=== PATIENT | female | born 1970 | race Caucasian/White ===

== ENCOUNTER 2023-08-27 10:24 | Outpatient (AMB) | payer MEDICAID, SELFPAY ==
--- NOTE | 2023-08-27 10:36 | A.SPINEOV_ITS ---
Intake Intake Visit Reasons: Low back PAIN Intake Note: Mrs. Scott is here today c/o recurrent low back pain. Previous pt. @ [facility]. MRI done @ [facility]/brought disc. 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 HPI: This 63-year-old female underwent a successful L4-5 lumbar fusion 15 years ago in another institution. She comes in for evaluation after she had 2 epis odes of acute pain in the right buttock. Specifically, on 03/16/2023 she developed an acute pain around the waist and right buttock without back pain. The symptoms lasted for 2 days. Another episode occurred on 07/25/2023. This time the pain radiated to her posterior thigh and knee with numbness of the whole thigh and right foot. Again the symptoms resolved in a few days. Currently she is symptom free. She states that after standing for more than hour she notices an uncomfortable feeling in her low back radiating to her right buttock that disappears when she sits down. She was seen at [facility]. She comes in today for 2nd opinion. The following conservative treatment options were tried without success antiinflammatories, tylenol, physician guided home exercise plan, cortisone shots PMH: L4-5 lumbar fusion, hiatal hernia, anxiety, right carpal tunnel syndrome, hypothyroidism Medications: Fioricet, alprazolam, tizanidine, progressed wrong, testosterone, fair repair male, levothyroxine, pravastatin, Nexium, vitamin-D, Zyrtec Allergies: Simvastatin, Vicodin, more Social history: She works in a [employer] center. She is a nonsmoker Physical Exam: Pleasant female. No restriction of the lumbar spine. Neurological exam is intact for motor sensation reflexes. Gait is undisturbed. Radiological Studies: MRI done at [facility] on 04/04/2023 shows adjacent degenerative disc disease with moderate central stenosis and bilateral L3 foraminal stenosis. A standing x-ray shows no significant instability. Impression/Plan: This patient is suffering from intermittent right L4 lumbar radiculopathy related to adjacent degenerative disease L3-4. I did not recommend surgical intervention at this time. However, if progression of the symptoms occur then the patient will contact my office for a re evaluation with flexion-extension x-rays. Thank you for allowing me to participate in your patients care. total time spent was 50 minutes in counseling ,coordination of plan, personal review of imaging, surgical decision making and subsequent plan Jeffery Blue MD, PhD Spine Fellowship Trained Neurosurgeon Director, [facility] Coding Level of Care Code New Pt Level 4 (49775) Diagnoses Adjacent segment disease of lumbar spine with history of fusion procedure M51.36; Z98.1
== END 2023-08-27 11:32 | disposition home or self-care (01) ==
PROVIDERS: Visit Provider Neurological Surgery
DX: M51.36 Other intervertebral disc degeneration, lumbar region (principal); Z98.1 Arthrodesis status
CPT/HCPCS: 99204

== ENCOUNTER → 2023-08-27 10:24 | Outpatient (BNVA) | payer MEDICAID, SELFPAY | PROVIDERS: Visit Provider Neurological Surgery ==

== ENCOUNTER 2024-09-23 12:46 | Outpatient (AMB) | payer BC, SELFPAY ==
--- NOTE | 2024-09-23 12:55 | HO.SPINEOV ---
Intake Visit Reasons: recurring pain/with xrays Intake Note: Ms. Scott is here today c/o of recurring back pain. 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 She had a L4-5 interbody fusion done many years ago at an outside institution. She was seen last year by Dr. Bleu for intermittent on and off back pain issues but nothing that was raising to the level of needing surgery. In late July of this year she was in the shower and had a fall. She fell out of her tub fell backwards onto her back. She initially may have just had a little bit of pain and discomfort but nothing that was too bad, but over the course of a few days her back started to tighten up. She started to feel back pain shooting down into the right side of her low back into her buttock. It felt like her sciatic pain. She has had this in the past related to her previous surgery so she was familiar with the sensation. She saw her PCP who ordered a thoracic MRI and a lumbar MRI. The lumbar MRI was denied for reasons that are not clear. The patient has been doing dedicated conservative management since the fall including Tylenol Arthritis, nonsteroidal anti-inflammatories, lidocaine back cream, stretches that were shown to her previously from her physical therapist, heating pads, hot showers etc.. The symptoms do not seem to be improving at all. She has at a point now where she is having significant trouble getting through daily activities. She is continuing to work, however it is very uncomfortable. On my exam, she does appear uncomfortable, standing very slowly. She has full strength of bilateral lower extremities with normal reflexes. Straight leg raise positive at 30 degrees. RICKIE testing negative. I think the patient when she fell possibly could have injured or herniated a disc. Her x-rays today here in the office show stable positioning of the L4-5 instrumentation. No sign of a fracture. Because of the pain radiating down into the buttock, I would like to get a lumbar MRI to rule out herniated disc. We will also get a set of flexion-extension x-rays to assess for instability above her fusion. Total amount of time spent in this visit was 20 minutes in discussion of symptoms, lumbar xray imaging results and subsequent plan of care Jacob Blue MD,PhD [facility] Orders: Orders XR lumbar spine 4V min Today M51.36 - Other intervertebral disc degeneration, lumbar region, Z98.1 - Arthrodesis status MR lumbar spine wo con Today M51.36 - Other intervertebral disc degeneration, lumbar region, Z98.1 - Arthrodesis status Coding Level of Care Code Est Pt Level 3 (89456) Diagnoses Adjacent segment disease of lumbar spine with history of fusion procedure M51.36; Z98.1
== END 2024-09-23 13:51 | disposition home or self-care (01) ==
PROVIDERS: Visit Provider Physician Assistant
DX: M51.369 Other intervertebral disc degeneration, lumbar region without mention of lumbar back pain or lower extremity pain (principal); Z98.1 Arthrodesis status
CPT/HCPCS: 99213

== ENCOUNTER → 2024-09-23 12:46 | Outpatient (BNVA) | payer BC, SELFPAY | PROVIDERS: Visit Provider Physician Assistant ==

== ENCOUNTER 2025-08-05 11:22 | Outpatient (AMB) | payer BC, SELFPAY ==
[2025-08-05 11:45] VITALS: BMI 37.2
--- NOTE | 2025-08-05 11:45 | A.SPINEOV_ITS ---
Vital Signs 08/05/25 11:45 Height 5 ft 1 in Weight 197 lb BMI 37.2 Intake Visit Reasons: discuss sx Intake Note: Ms. Scott is here today to Discuss Surgery. 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 Allergies acetaminophen (From Vicodin) Allergy (Mild, Verified 08/05/25 11:47) Vomiting hydrocodone (From Vicodin) Allergy (Mild, Verified 08/05/25 11:47) Vomiting simvastatin Allergy (Mild, Verified 08/05/25 11:47) Vomiting morphine Adverse Reaction (Severe, Verified 08/05/25 11:47) Hallucinations Physical Exam Vital Signs: BMI result Body Mass Index 37.2 Assessment & Plan Assessment & Plan (1) Adjacent segment disease of lumbar spine with history of fusion procedure: Code(s): M51.36 - Other intervertebral disc degeneration, lumbar region; Z98.1 - Arthrodesis status Category: Medical Plan Mrs Scott is back in follow up today. She is a patient known to us from previous office visits discussing back pain which has been chronic in nature and progressively getting worse. At this point she is having a hard time even doing simple things like cleaning her house. She has been through extensive conservative management in the form of medications, injections, physical therapy at [facility]. Her MRI done at [facility], and x-rays done at [facility] show worsening of her spondylolisthesis above her fusion. She had a previous transforaminal lumbar interbody fusion done at [facility] at L4-5 and now has L3-4 degenerative disc disease which we believe is causing her back pain. Dr. Blue and I met with her today and reviewed the procedure again at length, specifically L3-4 oblique lumbar interbody fusion with revision of posterior instrumentation. Her previous instrumentation was Surgalign. We have tentatively booked her for November 15. The patient was given risk and benefits of OLIF L3-4 surgery including but not limited to infection, hematoma, nerve injury, durotomy, weakness, bowel/bladder injury, persistent pain, and pseudoarthosis or instrumentation failure. We also discussed the option to continue with conservative treatment and patient wishes to proceed with surgery. They are aware they should stop NSAIDs 7 days prior to surgery. All questions were answered to the best of our ability. If there is anything about this patients medical history that we have overlooked or concerns you have about us proceeding with surgery we would appreciate any input you can offer Total amount of time spent in this visit was 20 minutes in discussion of symptoms, lumbar imaging results and subsequent plan of care Jacob Blue MD,PhD [facility] Coding Level of Care Code Est Pt Level 3 (61698) Diagnoses Adjacent segment disease of lumbar spine with history of fusion procedure M51.36; Z98.1
--- OUTSIDE RECORDS SUMMARY | 2025-08-05 13:12 | XMS_ITS | Encounter Summary ---
Author Organization [facility] Address [address] [place] [address] Care Team Providers Care Heel Lift Gouger Name Role Phone Casie Cunningham IMPLEMENTATION CONSULTANT Primary Care P lexx Encounter Details Date Type Department Care Team (Late st Contact Info) Description 06/10/2025 Orders Only [facility] [address] [place] [phone] Marlys Chavez, PA [address] [place] [address] Anemia, unspecified type (Primary Dx) Social History Tobacco Use Types Packs/Day Years Used Date Smoking Tobacco: Never Smokeless Tobacco: Never Comments:: Alcohol Use Standard Drinks/Week Comments Not Currently 0 (1 standard drink = 0.6 oz pur e alcohol) less than once monthly [facility] Utilities Answer Date Recorded In the past 12 months has e electric, gas, oil, or water company threatened to shut off services in your home? No 06/03/2025 Hunger Vital Sign Answer Date Recorded Within the past 12 months, y ou worried that your food would run out before you got the money to buy more. Never true 06/03/20 Within the past 12 months, t he food you bought just didn't last and you didn't have money to get more. Never true 06/03/2025 Transportation Answer Date Recorded In the past 12 months, has l ack of reliable transportation kept you from medical appointments, meetings, work or from getting things needed for daily living? No 06/03/2025 Housing Answer Date Recorded Housing Risk Low 2 11/19/2024 Housing Risk Medium Not on file 11/19/2024 Housing Risk High Not on file 11/19/2024 What is your living situation today? LSSTEADY 11/19/2024 Comments No Sex and Gender Information Value Date Recorded Sex Assigned at Female 11/14/2020 11:50 AM EST Legal Sex Female 1:19 AM EDT Gender Identity Female 11/14/2020 11:50 AM EST Sexual Orientation Straight 11/14/2020 11 :50 AM EST Occupation Industry Job Start Date Job End Date works in [employer] Not on file Not on file Not on file documented as of this encounter Plan of Treatment Upcoming Encounters Date Type Department Care Team (Late st Contact Info) Description 08/15/2025 8:00 AM EDT Follow-Up [facility] [address] [place] [id number] Aquatic Life Laborer: Bon Black MD [address] [place] [id number] 08/18/2025 9:45 AM EDT Follow-Up [facility] Neurology [address] [place] [phone] Nacho Mcqueen MD [address] [place] [phone] 08/19/2025 4:15 PM EDT Follow-Up [facility] [address] [place] [phone] Casie Cunningham NP [address] [place] [address] 04/17/2026 8:00 AM EDT Office Visit [facility] Endocrinology [address] [address] Aquatic Life Laborer: Katy Cordon MD [address] [place] [address] 05/17/2026 8:00 AM EDT Ancillary Procedure [facility] [address] [place] [phone] 05/17/2026 8:30 AM EDT Office Visit [facility] [address] [place] [phone] Leah Kothari NP [address] [place] [address] documented as of this encounter Results * Due to [place] state law, this organization might not be sharing negative HIV tests. * (ABNORMAL) CBC Auto Differential (06/16/2025 7:12 AM EDT) WBC 6.0 4.8 - 10.8 10*3/uL 06/16/2025 7:46 AM EDT [facility] RBC 4.03(L) 4.20 - 5.40 10*6/uL 06/16/2025 7:46 AM EDT [facility] Hemoglobin 11.5(L) 11.7 - 15.5 g/dL 06/16/2025 7:46 AM EDT [facility] Hematocrit 33.6(L) 35.7 - 45.8 % 06/16/2025 7:46 AM EDT [facility] MCV 83.4 81.0 - 99.0 fL 06/16/2025 7:46 AM EDT [facility] MCH 28.5 26.0 - 34.0 pg 06/16/2025 7:46 AM EDT [facility] MCHC 34.2 31.0 - 36.0 g/dL 06/16/2025 7:46 AM EDT [facility] RDW 14.0 12.0 - 15.0 % 06/16/2025 7:46 AM EDT [facility] RDW Standard Deviation 42.5 36.4 - 46.3 fL 06/16/2025 7:46 AM EDT [facility] Platelets 343 140 - 440 10*3/uL 06/16/2025 7:46 AM EDT [facility] MPV 8.9(L) 9.4 - 12.3 fL 06/16/2025 7:46 AM EDT [facility] Neutrophil % 52.4 50.0 - 75.0 % 06/16/2025 7:46 AM EDT [facility] Immature Grans % 0.2 0.0 - 0.9 % 06/16/2025 7:46 AM EDT [facility] Lymphocyte % 36.6 20.0 - 44.0 % 06/16/2025 7:46 AM EDT [facility] Monocyte % 7.8 0.0 - 14.0 % 06/16/2025 7:46 AM EDT [facility] Eosinophil % 2.5 0.0 - 5.0 % 06/16/2025 7:46 AM EDT [facility] Basophil % 0.5 0.0 - 2.0 % 06/16/2025 7:46 AM EDT [facility] Neutrophil # 3.17 1.80 - 7.70 10*3/uL 06/16/2025 7:46 AM EDT [facility] Immature Grans # <0.03 0.00 - 0.03 10*3/uL 06/16/2025 7:46 AM EDT [facility] Lymphocyte # 2.20 1.00 - 4.75 10*3/uL 06/16/2025 7:46 AM EDT [facility] Monocyte # 0.50 0.00 - 0.60 10*3/uL 06/16/2025 7:46 AM EDT [facility] Eosinophil # 0.20 0.00 - 0.80 10*3/uL 06/16/2025 7:46 AM EDT [facility] Basophil # <0.03 0.00 - 0.20 10*3/uL 06/16/2025 7:46 AM EDT [facility] nRBC % 0.0 0 - 0 /100 WBCs 06/16/2025 7:46 AM EDT [facility] nRBC # <0.01 0.00 - 0.13 10*3/uL 06/16/2025 7:46 AM EDT [facility] Blood Structure of peripheral vein / Unknown Venipuncture / Unknown 06/16/2025 7:12 AM EDT 06/16/2025 7:36 AM EDT [facility] BLOOD ORDERABLES Fin al Result [facility] [address] [place] [address], [place] [phone] documented in this encounter Visit Diagnoses Diagnosis Anemia, unspecified type- Primary documented in this encounter Care Teams Heel Lift Gouger Relationship Specialty Start Date End Date Casie Cunningham NP [address] [place] [phone] PCP - General Family Medicine 10/22/24 documented as of this encounter
--- OUTSIDE RECORDS SUMMARY | 2025-08-05 13:12 | XMS_ITS | Clinical Summary ---
Author Organization [facility] Address [address] [place] [address] Care Team Providers Care Director Of Knowledge Management Name Role Phone Casie Cunningham SIGNAL SYSTEM TESTING MAINTAINER Primary Care P rovider Allergies Active Allergy Reactions Criticality Noted Date Comments Doxycycline Diarrhea 01/07/2025 Hydrocodone Vomiting 05/05/2024 Morphine Hallucinations High Simvastatin Vomiting Medications * This document contains information received from the source organization and may not represent a complete record from that organization. CETIRIZINE HCL (ZYRTEC ORAL) Active CALCIUM ORAL Take 600 mg by mouth once a day. Active multivitamin (MULTIPLE VITAMINS ORAL) Take by mouth. With calcium 300 mg and D3 1000 units Active MAGNESIUM ORAL Take by mouth. Active esomeprazole (NexIUM) 40 mg capsule TAKE 1 CAPSULE BY MOUTH IN THE MORNING BEFORE BREAKFAST 90 capsule 3 4 Active pravastatin (PRAVACHOL) 20 mg tablet Take 20 mg by mouth once a day. 5 Active butalbital-acet aminophen-caffe ine (FIORICET) 50-325-40 mg tabletIndicatio ns:Intractable migraine with aura without status migrainosus TAKE 2 TABLETS BY MOUTH DAILY NEEDED FOR HEADACHE (30 DAY PRESCRIPTION)Str ength: 50-325-40 mg 28 tablet 5 5 Active naloxone HCl (NARCAN) 4 mg/actuation nasal spray Instill the contents of 1 unit intranasally for suspected opioid overdose. Repeat after 3 minutes if no or minimal response. 1 each 5 Active ergocalciferol (VITAMIN D2) 1,250 mcg (50,000 unit) capsule Take 1 capsule (50,000 Units total) by mouth every 15 days. 6 capsule 3 5 Active levothyroxine (SYNTHROID, LEVOTHROID) 125 mcg tablet Take 1 tablet (125 mcg total) by mouth once a day. 90 tablet 3 5 026 Active tiZANidine (ZANAFLEX) 4 mg tabletIndicatio ns:Intractable migraine with aura without status migrainosus TAKE 1 TABLET BY MOUTH AT NIGHT 90 tablet 1 5 Active verapamil SR (CALAN SR) 180 mg tabletIndicatio ns:Intractable migraine with aura without status migrainosus TAKE 1 TABLET BY MOUTH AT NIGHT 90 tablet 3 5 Active ALPRAZolam (XANAX) 1 mg tablet Take 1 tablet (1 mg total) by mouth 3 times a day as needed for anxiety. 90 tablet 5 025 Active predniSONE (DELTASONE) 20 mg tablet Take 1 tablet daily x 5 days 5 tablet 5 Active escitalopram (LEXAPRO) 20 mg tablet Take 1 tablet (20 mg total) by mouth once a day. 90 tablet 5 025 Active oxyCODONE-aceta minophen (PERCOCET) 5-325 mg tablet Take 1 tablet by mouth daily as needed for pain (for occasional use with severe pain not managed with OTC meds). 15 tablet 5 025 Active busPIRone (BUSPAR) 15 mg tablet Take 1 tablet (15 mg total) by mouth 2 (two) times a day. 180 tablet 5 025 Active azithromycin (ZITHROMAX) 250 mg tablet Take 2 by mouth today then 1 daily for 4 days 6 tablet 09/08/ 025 Active Problems Problem Noted Date Diagnosed Date Chronic rhinitis 02/01/2025 Thyroid with heterogeneous e chotexture determined by ultrasound 07/15/2024 Vitamin D deficiency 05/05/2024 Overview (05/05/2024): First noted in the EMR in 06/2012 (21). 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 Obesity 01/23/2009 Esophageal reflux 01/10/2009 Hypercholesterolemia 12/13/2008 Anxiety disorder 12/18/2005 Chronic cough Resolved Problems Problem Noted Date Diagnosed Date Resolved Date Bronchitis 01/10/2025 04/18/2025 De Quervain's tenosynovitis, right 04/22/2024 05/05/2024 Cough 12/21/2021 05/05/2024 Trigger finger of right thumb 06/23/2017 05/05/2024 Trigger ring finger of right hand 06/23/2017 05/05/2024 Pain of right middle finger 02/17/2017 05/05/2024 Carpal tunnel syndrome of left wrist 01/15/2017 10/29/2024 Ankle sprain 02/18/2013 05/05/2024 Lower back pain 02/05/2013 05/05/2024 History of allergy 12/29/2012 Asthma 12/29/2012 05/05/2024 Iron deficiency anemia 11/19/200905/05 Hematuria 08/15/2009 05/05/2024 Common migraine without aura 05/01/2009 09/20/2019 Encounters Date Type Department Care Team Description 08/01/2025 myChart Message [facility] Primary Care [address] [place] [phone] Casie Cunningham NP Meds 08/01/2025 Refill [facility] Primary Care [address] [place] [phone] Casie Cunningham NP 07/27/2025 myChart Message [facility] Neurology [address] [place] [phone] Trey Farah MA [employer] FMLA 07/20/2025 myChart Message [facility] [address] [place] [phone] Scale And Skip Car Operator: Janet Waterman NP Bronchitis 07/19/2025 myChart Message [facility] Neurology [address] [place] [phone] Nacho Mcqueen MD [facility] 07/18/2025 5:00 PM EDT Telehealth [facility] Lung and Allergy [address] [address] Scale And Skip Car Operator: Janet Waterman NP Bronchitis (Primary Dx) 07/18/2025 Telephone [facility] Lung [facility] Allergy [address] [address] Scale And Skip Car Operator: Bon Black MD [facility] 07/06/2025 4:15 PM EDT Follow-Up [facility] Primary Care [address] [place] [phone] Casie Cunningham NP Hematoma (Primary Dx); Anxiety disorder, unspecified type; Chronic bilateral low back pain with bilateral sciatica 07/06/2025 Telephone [facility] Primary Care [address] [place] [phone] Telephone Intake, Staff f/u 07/04/2025 7:10 AM EDT Lab [facility] Site Department [address] [place] [address] Hypercholesterolemi a; Anemia, unspecified type 07/04/2025 Results Follow-Up [facility] Care [address] [place] [phone] Marlys Chavez PA 07/04/2025 Results Follow-Up [facility] Primary Care [address] [facility] [phone] Casie Cunningham, ZENA 06/21/2025 Orders Only [facility] Primary Care [address] [place] [phone] Marlys Chavez PA Anemia, unspecified type (Primary Dx) 06/16/2025 7:10 AM EDT Lab [facility] Site Department [address] [place] [phone] Anemia, unspecified type 06/16/2025 Refill [facility] Neurology [address] [place] [phone] Nacho Mcqueen MD Intractable migraine with aura without status migrainosus 06/16/2025 Refill [facility] Neurology [address] [place] [phone] Nacho Mcqueen MD Intractable migraine with aura without status migrainosus 06/16/2025 Results Follow-Up [facility] Primary Care [address] [place] [phone] Marlys Chavez PA 06/16/2025 myChart Message [facility] Primary Care [address] [place] [phone] Marlys Chavez PA Lab Results 06/13/2025 myChart Message [facility] Primary Care [address] [place] [phone] Dione Stringer MA alprazolam 06/13/2025 Refill [facility] Primary Care [address] [place] [phone] Casie Cunningham, ZENA 06/13/2025 Refill [facility] Primary Care [address] [place] [phone] Casie Cunningham, ZENA 06/10/2025 Orders Only [facility] Lab [address] [place] [phone] Marlys Chavez PA Anemia, unspecified type (Primary Dx) 06/09/2025 2:15 PM EDT Office Visit [facility] Primary Care [address] [place] [phone] Marlys Chavez PA Hematoma 06/09/2025 Orders Only [facility] Primary Care [address] [place] [phone] Marlys Chavez PA Anemia, unspecified type (Primary Dx) 06/09/2025 Results Follow-Up [facility] Primary Care [address] [place] [phone] Malrys Chavez PA 06/09/2025 Refill [facility] Primary Care [address] [place] [phone] Casie Cunningham, ZENA 06/08/2025 Telephone [facility] Primary Care [address] [place] [phone] Telephone Intake, Staff PAC Urgent Ebeep 06/03/2025 6:26 AM EDT - 06/03/2025 1:28 PM EDT Emergency [facility] Emergency Department [address] [place] [phone] Melina Cohen MD Hematoma of arm, right, initial encounter (Primary Dx) Discharge Disposition: Home or Self Care (01) 05/17/2025 Refill [facility] Primary Care [address] [place] [phone] Casie Cunningham NP from Last 3 Months Immunizations Immunization Administration Dates Next Due COVID-19, Pfizer, mRNA, Biva lent Booster, PF, 30 mcg/0.3 mL dose (for age 12 y and up) 08/01/2022 Covid-19, Moderna, mRNA, Vac cine, PF, 50 mcg/0.5 mL (for age 12 y and up) 08/15/2023 Covid-19, Pfizer, mRNA, Attala valent, PF 30 mcg/0.3 mL dose (for ages 12 and older) 08/14/2021,11/27/2020,11/06/2020 Covid-19, Pfizer, mRNA, Kevon -sucrose Vaccine, PF, 30 mcg/0.3 mL (for age 12 y and up) 07/17/2024 Covid-19,Vaccine Unspecified 07/17/2024 INFLUENZA, SPLIT VIRUS, TRIVALENT, PF 07/17/2024 ,09/02/2011,09/06/2009 Influenza, Injectable, Madin Tylerton Canine Kidney, Preservative Free, Quadrivalent 08/01/2022 Influenza, Injectable, Quadr ivalent, Preservative Free 08/07/2023,08/14/2021,09/04/2016 Influenza, Trivalent, MDV, Injectable 09/12/2008 Influenza, Unspecified 07/17/2024 Novel [id number], Injectable 12/04/2009 Pneumococcal Polysaccharide Vaccine, 23 Valent 12/04/2009 Tetanus Toxoid, Reduced Diph theria Toxoid, and Acellular Pertussis Vaccine, Adsorbed 11/14/2017 Tetanus and Diphtheria Toxoi ds, Adsorbed, Preservative Free (2 Lf of Tetanus Toxoid and 2 Lf of Diphtheria Toxoid) 01/19/1997 Family History Medical History Relation Name Comments JOSE disease Father Hyperlipidemia Father Hypertension Father Thyroid cancer Father papillary thy roid cancer total thyroidectomy and lyphadenectomy one side Myocardial Infarction Maternal Grandfather Dementia Maternal Grandmother at age 87 Osteoporosis Maternal Grandmother Stroke Maternal Grandmother ag e 87 Arthritis Mother Myocardial Infarction Mother's Brother 2n d [place] in early 60s Breast cancer Mother's Sister in 2 aunts (age 39 and age 55; early 60s x 2 episodes); patient has been tested and was negative for BRACA Prostate cancer Paternal Grandfather Dementia Paternal Grandmother ag e 95 Asthma Neg Hx Celiac disease Neg Hx Crohn's disease Neg Hx Diabetes type I Neg Hx Diabetes type II Neg Hx Hypercalcemia Neg Hx Hyperparathyroidism Neg Hx Multiple myeloma Neg Hx Rheum arthritis Neg Hx Seizures Neg Hx Systemic Lupus Erythematosus Neg Hx Thyroid disease Neg Hx Thyroid nodules Neg Hx Ulcerative colitis Neg Hx Urolithiasis Neg Hx Relation Name Status Comments Father Alive Maternal Grandfather Maternal Grandmother Mother Alive Mother's Brother Mother's Sister Paternal Grandfather Paternal Grandmother Social History Tobacco Use Types Packs/Day Years Used Date Smoking Tobacco: Never Smokeless Tobacco: Never Tobacco Cessation:Counseling Given: Not Answered Comments:: Alcohol Use Standard Drinks/Week Comments Not Currently 0 (1 standard drink = 0.6 oz pur e alcohol) less than once monthly [facility] Utilities Answer Date Recorded In the past 12 months has th e electric, gas, oil, or water company [...] Start Date Job End Date works in [employer] Not on file Not on file Not on file Last Filed Vital Signs Vital Sign Reading Time Taken Comments Blood Pressure 138/88 07/06/2025 4:28 PM EDT Pulse 87 07/06/2025 4:09 PM EDT Temperature 36.6 C (97.9 F) 06/03/2025 11:28 AM EDT Respiratory Rate 18 06/03/2025 11:44 AM EDT Oxygen Saturation 98% 06/09/2025 2:15 PM EDT Inhaled Oxygen Concentration - - Weight 90.7 kg (200 lb) 06/03/2025 6:37 AM EDT Height 154.9 cm (5' 1 ) 06/03/2025 6:37 AM EDT Body Mass Index 37.79 06/03/2025 6:37 AM EDT Plan of Treatment Upcoming Encounters Date Type Department Care Team (Late st Contact Info) Description 08/15/2025 8:00 AM EDT Follow-Up [facility] [address] [place] [phone] Scale And Skip Car Operator: Bon Black MD [address] [place] [phone] 08/18/2025 9:45 AM EDT Follow-Up [facility] Neurology [address] [place] [phone] Nacho Mcqueen MD [address] [place] [phone] 08/19/2025 4:15 PM EDT Follow-Up [facility] Primary Care [address] [place] [phone] Casie Cunningham NP [address] [place] [phone] 04/17/2026 8:00 AM EDT Office Visit [facility] Endocrinology [address] [place] [phone] Scale And Skip Car Operator: Katy Cordon MD [address] [place] [phone] 05/17/2026 8:00 AM EDT Ancillary Procedure [facility] setObject [address] [address] 05/17/2026 8:30 AM EDT Office Visit [facility] setObject [address] [address] Leah Kothari, ZENA [address] [place] [address] Health Maintenance Due Date Last Done Comments Colonoscopy 1971 FOBT / Fit Test 1971 HIV Screening 1971 Sigmoidoscopy 1971 Hepatitis B Vaccines (1 of 3 - 19+ 3-dose series) 1990 Zoster Vaccines (1 of 2) 2021 Influenza Vaccine (#1) 2025 , 07/17/2024, 08/07/2023, Additional history exists Controlled Substance Agreement 10/29/2025 10/29/2024 Depression Screening and Follow-Up 12/24/20252024 Social Drivers of Health Melly ual Screening 06/03/2026 06/03/2025 Cologuard 01/22/2027 01/23/2024 Colon Cancer Screening 01/22/2027 Mammogram 04/01/2027 04/01/2025, 0 07/2024, 09/18/2022, Additional history exists DTaP,Tdap,and Td Vaccines (2 - Td or Tdap) 11/14/2027 11/14/2017, 01/19/1997 Pap Smear 04/19/2028 04/19/2025, 0 07/2024, 09/18/2022, Additional history exists Diabetes Screening 06/03/2028 06/03/2025, 0 11/26/2024, 02/28/2013, Additional history exists Cervical Cancer Screening 04/19/2030 HPV and Pap Smear 04/19/2030 04/19/2025, , 09/18/2022, Additional history exists RSV Vaccine (60+ years old a nd patients) (1 - 1-dose 75+ series) 2046 Hepatitis C Screening Completed 10/29/2010 COVID-19 Vaccine Completed 07/17/2024, 05/2024, 08/15/2023, Additional history exists Pneumococcal Vaccine: 50+ Years Completed 5, 12/04/2009 Alcohol/Substance Use Screening Completed 5 Procedures * Due to [place] state law, this organization might not be sharing negative HIV tests. Procedure Name Priority Date/Time Associated Diagnosis Comments DRUG TOX MONITORING BASE PANEL,W/CONF,ORAL [id number] Routine 07/06/2025 5:05 PM EDT Anxiety disorder, unspecified type CBC AUTO DIFFERENTIAL Routine 07/04/2025 7:18 AM EDT Anemia, unspecified type LIPID PANEL W/REFLEX TO DIRECT LDL Routine 07/04/2025 7:18 AM EDT Hypercholesterolemia FERRITIN Routine 06/16/2025 7:12 AM EDT Anemia, unspecified type IRON SATURATION Routine 06/16/2025 7:12 AM EDT Anemia, unspecified type CBC AUTO DIFFERENTIAL Routine 06/16/2025 7:12 AM EDT Anemia, unspecified type IRON, TIBC AND FERRITIN PANEL (5616) Routine 06/16/2025 7:12 AM EDT Anemia, unspecified type CBC 6 PART AUTO DIFFERENTIAL (BARRE ONLY) Routine 06/09/2025 2:[address] ANGIOGRAM UPPER EXTREMITY RIGHT W WO CONTRAST STAT 06/03/2025 11:17 AM EDT US UPPER EXTREMITY VENOUS RIGHT STAT 06/03/2025 9:21 AM EDT BASIC METABOLIC PANEL STAT 06/03/2025 8:33 AM EDT CBC AUTO DIFFERENTIAL STAT 06/03/2025 8:33 AM EDT [facility] PAP TEST AND HPV, MRNA E6/E7 Routine 04/19/2025 10:02 AM EDT Pap smear, as part of routine gynecological examination SOLOMON BILATERAL SCREENING DIGITAL MAMMOGRAM WITH YOANDY Routine 04/01/2025 9:05 AM EDT Breast cancer screening by mammogram HEPATITIS C ANTIBODY, CONVERSION Routine 10/29/2010 3:46 PM EST from Last 3 Months or Most Recently Relevant to Health Maintenance Results * Due to [place] state law, this organization might not be sharing negative HIV tests. * (ABNORMAL) Drug Toxicology Monitoring Base Panel w/Confirmation, Oral Fluid (07/06/2025 5:05 PM EDT) Amphetamines Screen, Oral Fluid NEGATIVE <10 ng/mL 07/12/2025 11:59 PM EDT [facility] Comment: See Note 1 Benzodiazepines Screen, Oral Fluid POSITIVE(A) <0.50 ng/mL 07/12/2025 11:59 PM EDT [facility] Comment: See Note 1 Alprazolam, Oral Fluid 4.87(H) <0.50 ng/mL 07/12/2025 11:59 PM EDT [facility] Comment: See Note 1 Chlordiazepoxide, Oral Fluid NEGATIVE <0.50 ng/mL 07/12/2025 11:59 PM EDT [facility] Comment: See Note 1 Clonazepam, Oral Fluid NEGATIVE <0.50 ng/mL 07/12/2025 11:59 PM EDT [facility] Comment: See Note 1 Aminoclonazepam NEGATIVE <0.50 ng/mL 07/12/2025 11:59 PM EDT [facility] Comment: See Note 1 Diazepam, Oral Fluid NEGATIVE <0.50 ng/mL 07/12/2025 11:59 PM EDT [facility] Comment: See Note 1 Flunitrazepam, Oral Fluid NEGATIVE <0.50 ng/mL 07/12/2025 11:59 PM EDT [facility] Comment: See Note 1 Flurazepam, Oral Fluid NEGATIVE <0.50 ng/mL 07/12/2025 11:59 PM EDT [facility] Comment: See Note 1 Lorazepam, Oral Fluid NEGATIVE <0.50 ng/mL 07/12/2025 11:59 PM EDT [facility] Comment: See Note 1 Midazolam, Oral Fluid NEGATIVE <0.50 ng/mL 07/12/2025 11:59 PM EDT [facility] Comment: See Note 1 Nordiazepam, Oral Fluid NEGATIVE <0.50 ng/mL 07/12/2025 11:59 PM EDT [facility] Comment: See Note 1 Oxazepam, Oral Fluid NEGATIVE <0.50 ng/mL 07/12/2025 11:59 PM EDT [facility] Comment: See Note 1 Temazepam, Oral Fluid NEGATIVE <0.50 ng/mL 07/12/2025 11:59 PM EDT [facility] Comment: See Note 1 Triazolam, Oral Fluid NEGATIVE <0.50 ng/mL 07/12/2025 11:59 PM EDT [facility] Comment: See Note 1 Buprenorphine Screen, Oral Fluid NEGATIVE <0.10 ng/mL 07/12/2025 11:59 PM EDT [facility] Comment: See Note 1 Cocaine Screen, Oral Fluid NEGATIVE <5.0 ng/mL 07/12/2025 11:59 PM EDT [facility] Comment: See Note 1 Fentanyl Screen, Oral Fluid NEGATIVE <0.10 ng/mL 07/12/2025 11:59 PM EDT [facility] Comment: See Note 1 Heroin Metabolite Screen, Oral Fluid NEGATIVE <1.0 ng/mL 07/12/2025 11:59 PM EDT [facility] Comment: See Note 1 Marijuana Screen, Oral Fluid NEGATIVE <2.5 ng/mL 07/12/2025 11:59 PM EDT [facility] Comment: See Note 1 Methadone Screen, Oral Fluid NEGATIVE <5.0 ng/mL 07/12/2025 11:59 PM EDT [facility] Comment: See Note 1 Opiates Screen, Oral Fluid NEGATIVE <2.5 ng/mL 07/12/2025 11:59 PM EDT [facility] Comment: See Note 1 Tapentadol Screen, Oral Fluid NEGATIVE <5.0 ng/mL 07/12/2025 11:59 PM EDT [facility] Comment: See Note 1 Tramadol Screen, Oral Fluid NEGATIVE <5.0 ng/mL 07/12/2025 11:59 PM EDT [facility] Comment: See Note 1 See Note 2 Note 1 This test was developed and its analytical performance characteristics have been determined by [facility]. It has not been cleared or approved by the FDA. This assay has been validated pursuant to the CLIA regulations and is used for clinical purposes. Note 2 For additional information, please refer to: http://education.3DSoC/faq/MUG227 (This link is being provided for informational/ educational purposes only.) This drug testing is for medical treatment only. Analysis was performed as non-forensic testing and these results should be used only by healthcare providers to render diagnosis or treatment, or to monitor progress of medical conditions. For assistance with interpreting these drug results, please contact a [facility] Toxicology Specialist: [phone] ( ), M-F, 8am-6pm EST. Saliva Specimen from salivary gland / Unknown Non-Blood Collection / Unknown 07/06/2025 5:05 PM EDT 07/06/2025 5:05 PM EDT Joselyn MCINTOSH RY - 07/12/2025 11:59 PM EDT [facility] Received Date: Casie Cunningham NP LAB BODY FLUIDS AND STOOLS ORDERABLES Final Result [facility] [address] [facility] [address], [place] [address], [place] [address], * Lipid Panel w/Reflex to Direct LDL (07/04/2025 7:18 AM EDT) Cholesterol 187 mg/dL 07/04/2025 7:45 AM EDT [facility] Comment: DESIRABLE: <200 mg/dL BORDERLINE HIGH: 200-239 mg/dL HIGH: >239 mg/dL Triglycerides 146 mg/dL 07/04/2025 7:45 AM EDT [facility] Comment: NORMAL: <150 mg/dL BORDERLINE HIGH: 150-199 mg/dL HIGH: 200-499 mg/dL VERY HIGH >499 mg/dL Cholesterol, HDL 60 mg/dL 07/04/20 7:45 AM EDT [facility] Comment: DESIRABLE: >60 mg/dL BORDERLINE: 40-59 mg/dL UNDESIRABLE: <40 mg/dL LDL Cholesterol 98 mg/dL 7:45 AM EDT [facility] Comment: OPTIMAL: <100 mg/dL NEAR OPTIMAL: <130 mg/dL BORDERLINE HIGH: 130-159 mg/dL HIGH: 160-189 mg/dL VERY HIGH: >189 mg/dL VLDL 29.2 mg/dL 07/04/2025 7:45 AM EDT [facility] Cholesterol/HDL Ratio 3.1 07/04/2025 7:45 AM EDT [facility] Blood Structure of peripheral vein / Unknown Venipuncture / Unknown 07/04/2025 7:18 AM EDT 07/04/2025 7:18 AM EDT us Casie Cunningham SIGNAL SYSTEM TESTING MAINTAINER LAB BLOOD ORDER JACKELIN Final Result [facility] [address] [place] [address], [place] [phone] * (ABNORMAL) CBC Auto Differential (07/04/2025 7:18 AM EDT) Only the most recent of3 resultswithin the time period is included. WBC 6.6 4.8 - 10.8 10*3/uL 07/04/2025 7:23 AM EDT [facility] RBC 4.31 4.20 - 5.40 10*6/uL 07/04/2025 7:23 AM EDT [facility] Hemoglobin 11.9 11.7 - 15.5 g/dL 07/04/2025 7:23 AM EDT [facility] Hematocrit 35.4(L) 35.7 - 45.8 % 07/04/2025 7:23 AM EDT [facility] MCV 82.1 81.0 - 99.0 fL 07/04/2025 7:23 AM EDT [facility] MCH 27.6 26.0 - 34.0 pg 07/04/2025 7:23 AM EDT [facility] MCHC 33.6 31.0 - 36.0 g/dL 07/04/2025 7:23 AM EDT [facility] RDW 13.7 12.0 - 15.0 % 07/04/2025 7:23 AM EDT [facility] RDW Standard Deviation 41.0 36.4 - 46.3 fL 07/04/2025 7:23 AM EDT [facility] Platelets 286 140 - 440 10*3/uL 07/04/2025 7:23 AM EDT [facility] MPV 8.8(L) 9.4 - 12.3 fL 07/04/2025 7:23 AM EDT [facility] Neutrophil % 49.3(L) 50.0 - 75.0 % 07/04/2025 7:23 AM EDT [facility] Immature Grans % 0.3 0.0 - 0.9 % 07/04/2025 7:23 AM EDT [facility] Lymphocyte % 39.2 20.0 - 44.0 % 07/04/2025 7:23 AM EDT [facility] Monocyte % 7.5 0.0 - 14.0 % 07/04/2025 7:23 AM EDT [facility] Eosinophil % 2.9 0.0 - 5.0 % 07/04/2025 7:23 AM EDT [facility] Basophil % 0.8 0.0 - 2.0 % 07/04/2025 7:23 AM EDT [facility] Neutrophil # 3.27 1.80 - 7.70 10*3/uL 07/04/2025 7:23 AM EDT [facility] Immature Grans # <0.03 0.00 - 0.03 10*3/uL 07/04/2025 7:23 AM EDT [facility] Lymphocyte # 2.60 1.00 - 4.75 10*3/uL 07/04/2025 7:23 AM EDT [facility] Monocyte # 0.50 0.00 - 0.60 10*3/uL 07/04/2025 7:23 AM EDT [facility] Eosinophil # 0.20 0.00 - 0.80 10*3/uL 07/04/2025 7:23 AM EDT [facility] Basophil # 0.10 0.00 - 0.20 10*3/uL 07/04/2025 7:23 AM EDT [facility] nRBC % 0.0 0 - 0 /100 WBCs 07/04/2025 7:23 AM EDT [facility] nRBC # <0.01 0.00 - 0.13 10*3/uL 07/04/2025 7:23 AM EDT [facility] Blood Structure of peripheral vein / Unknown Venipuncture / Unknown 07/04/2025 7:18 AM EDT 07/04/2025 7:18 AM EDT [facility]AZUETA LAB BLOOD ORDERABLES Fin al Result Performing Organization Address City/State/[facility] Co de Phone Number [facility] [address] [place] [address] [address] [place] [address], * Iron Saturation (06/16/2025 7:12 AM EDT) Iron 71 37 - 145 ug/dL 06/16/2025 8:07 AM EDT [facility] Unsaturated Iron Binding 194.0 112.0 - 347.0 ug/dL 06/16/2025 8:07 AM EDT [facility] Transferrin Saturation 27 15 - 50 % 06/16/2025 8:07 AM EDT [facility] Blood Structure of peripheral vein / Unknown Venipuncture / Unknown 06/16/2025 7:12 AM EDT 06/16/2025 7:36 AM EDT [facility] BLOOD ORDERABLES Fin al Result Performing Organization Address City/[facility]/ZIP Co de Phone Number [facility] [address] [address], [place] [phone] * Ferritin (06/16/2025 7:12 AM EDT) Ferritin 103.0 15.0 - 150.0 ng/mL 06/16/2025 8:07 AM EDT [facility] Blood Structure of peripheral vein / Unknown Venipuncture / Unknown 06/16/2025 7:12 AM EDT 06/16/2025 7:36 AM EDT [facility] BLOOD ORDERABLES Fin al Result Performing Organization Address [facility] de Phone Number [facility] [address] [address], [place] [phone] * (ABNORMAL) CBC 6 Part Auto Differential ([facility] ONLY) (06/09/2025 2:58 PM EDT) WBC 7.4 3.8 - 10.8 10*3/uL 06/09/2025 3:37 PM EDT [facility] RBC 4.01 3.80 - 5.10 10*6/uL 06/09/2025 3:37 PM EDT [facility] Hemoglobin 10.9(L) 11.7 - 15.5 g/dL 06/09/2025 3:37 PM EDT [facility] Hematocrit 34.3(L) 35.0 - 45.0 % 06/09/2025 3:37 PM EDT [facility] MCV 85.5 80.0 - 100.0 fL 06/09/2025 3:37 PM EDT [facility] MCH 27.2 27.0 - 33.0 pg 06/09/2025 3:37 PM EDT [facility] MCHC 31.8(L) 32.0 - 36.0 g/dL 06/09/2025 3:37 PM EDT [facility] RDW 14.0 11.0 - 15.0 % 06/09/2025 3:37 PM EDT [facility] Platelets 330 140 - 400 10*3/uL 06/09/2025 3:37 PM EDT [facility] MPV 9.0 7.5 - 12.5 fL 06/09/2025 3:37 PM EDT [facility] Neutrophil % 53.1 % 06/09/2025 3:37 PM EDT [facility] Lymphocyte % 36.6 % 06/09/2025 3:37 PM EDT [facility] Monocyte % 7.1 % 06/09/2025 3:37 PM EDT [facility] Eosinophil % 2.6 % 06/09/2025 3:37 PM EDT [facility] Basophil % 0.3 % 06/09/2025 3:37 PM EDT [facility] Immature Grans % 0.3 0.0 - 0.9 % 06/09/2025 3:37 PM EDT [facility] Neutrophil # 3.92 1.50 - 7.80 10*3/uL 06/09/2025 3:37 PM EDT [facility] Lymphocyte # 2.70 0.85 - 3.90 10*3/uL 06/09/2025 3:37 PM EDT [facility] Monocyte # 0.52 0.20 - 0.95 10*3/uL 06/09/2025 3:37 PM EDT [facility] Eosinophil # 0.19 0.02 - 0.50 10*3/uL 06/09/2025 3:37 PM EDT [facility] Basophil # <0.03 0.00 - 0.20 10*3/uL 06/09/2025 3:37 PM EDT [facility] Immature Grans # <0.03 <=0.03 10*3/uL 06/09/2025 3:37 PM EDT [facility] Blood Structure of peripheral vein / Unknown Venipuncture / Unknown 06/09/2025 2:58 PM EDT 06/09/2025 2:58 PM EDT us [facility] BLOOD ORDERABLES Fin al Result [facility] [address] [place] [address], [place] * CT Angiogram Upper Extremity Right W WO Contrast (06/03/2025 11:17 AM EDT) Anatomical Region Laterality Modality Upper Extremities Right Computed Tomog lee 06/03/2025 11:5 7 AM EDT Impressions 06/03/2025 12:08 PM EDT Subcutaneous stranding and hematoma along the anterior aspect of the upper extremity. No evidence of active arterial bleeding. If this radiology report contains a blank impression section, it is an incomplete radiology report. Please contact the interpreting radiologist or applicable radiology division as soon as possible to obtain the completed interpretation. Workstation ID: [id number] Up-to-date CT equipment and radiation dose reduction techniques were employed. CTDIvol: 1.1 - 17.5 mGy. DLP: 3537 mGy-cm. Narrative 06/03/2025 12:08 PM EDT EXAM: CT ANGIOGRAM OF THE RIGHT UPPER EXTREMITY without and with contrast CLINICAL INFORMATION: Right arm swelling and pain TECHNIQUE: CT angiogram of the right upper extremity before and after administration of IV contrast. Maximum intensity projection images were created in axial, coronal and sagittal planes. 3-D maximum intensity projection and volume rendered images were created. COMPARISON: None available FINDINGS: The included portion of the right subclavian artery is patent. The axillary and brachial arteries are patent without evidence of significant stenosis, occlusion or dissection. The radial, ulnar and interosseous arteries are patent. There is gradual diminishment of contrast opacification distally which may reflect contrast bolus timing. There is no evidence of arterial contrast extravasation. The venous structures in the right upper extremity are patent. Evaluation of the soft tissues reveals subcutaneous fat stranding and some hyperdense fluid tracking along the surface of the belly of the biceps muscle from its midportion down to the level of the antecubital fossa, consistent with edema and some hematoma. The partially included right lung is clear. The included portions of the liver, gallbladder and right colon are unremarkable. The partially included soft tissues of the right lower extremity also are unremarkable. The bones are intact. There is no acute fracture. Resulting Agency Comment [id number] Procedure Note Libby Bang MD - 06/03/2025 EXAM: CT ANGIOGRAM OF THE RIGHT UPPER EXTREMITY without and with contrast CLINICAL INFORMATION: Right arm swelling and pain TECHNIQUE: CT angiogram of the right upper extremity before and after administrationof IV contrast. Maximum intensity projection images were created in axial,coronal and sagittal planes. 3-D maximum intensity projection and volumerendered images were created. COMPARISON: None available FINDINGS: The included portion of the right subclavian artery is patent. Theaxillary and brachial arteries are patent without evidence of significantstenosis, occlusion or dissection. The radial, ulnar and interosseousarteries are patent. There is gradual diminishment of contrastopacification distally which may reflect contrast bolus timing. There isno evidence of arterial contrast extravasation. The venous structures in the right upper extremity are patent. Evaluation of the soft tissues reveals subcutaneous fat stranding and somehyperdense fluid tracking along the surface of the belly of the bicepsmuscle from its midportion down to the level of the antecubital fossa,consistent with edema and some hematoma. The partially included right lung is clear. The included portions of theliver, gallbladder and right colon are unremarkable. The partiallyincluded soft tissues of the right lower extremity also areunremarkable. The bones are intact. There is no acute fracture. IMPRESSION: Subcutaneous stranding and hematoma along the anterior aspect of the upperextremity. No evidence of active arterial bleeding. If this radiology report contains a blank impression section, it is anincomplete radiology report. Please contact the interpreting radiologistor applicable radiology division as soon as possible to obtain thecompleted interpretation. Workstation ID: [id number] Up-to-date CT equipment and radiation dose reduction techniques wereemployed. CTDIvol: 1.1 - 17.5 mGy. DLP: 3537 mGy-cm. Melina Cohen MD IMG CT PROCEDURES Final Result * [place] Upper Extremity Venous Right [facility] (06/03/2025 9:21 AM EDT) Anatomical Region Laterality Modality Upper Extremities Right Ultrasound 06/03/2025 9:24 AM EDT Impressions 06/03/2025 9:27 AM EDT No evidence of DVT right upper extremity. Equivocal subtle wall thickening distal cephalic vein with trace adjacent edema. If this radiology report contains a blank impression section, it is an incomplete radiology report. Please contact the interpreting radiologist or applicable radiology division as soon as possible to obtain the completed interpretation. Workstation ID: [id number] Narrative 06/03/2025 9:27 AM EDT EXAMINATION: Right upper extremity duplex venous ultrasound INDICATION: R arm pain and swelling after donating plasma, ? DVT, hematoma, active extrav COMPARISON: None. FINDINGS: The internal jugular, innominate, subclavian, axillary, basilic, paired brachial, and cephalic veins all demonstrate spontaneous color flow with normal respiratory variation and a normal response to distal augmentation, compatible with patency. Where possible, there is normal compression of the venous lumen. Suggestion of subtle wall thickening and a portion of the distal right cephalic vein with trace edema. No soft tissue collections seen. Resulting Agency Comment [id number] Procedure Note Estevan Ervin Jr., MD - 06/03/2025 EXAMINATION: Right upper extremity duplex venous ultrasound INDICATION: R arm pain and swelling after donating plasma, ? DVT, hematoma, activeextrav COMPARISON: None. FINDINGS: The internal jugular, innominate, subclavian, axillary, basilic, pairedbrachial, and cephalic veins all demonstrate spontaneous color flow withnormal respiratory variation and a normal response to distal augmentation,compatible with patency. Where possible, there is normal compression ofthe venous lumen. Suggestion of subtle wall thickening and a portion of the distal rightcephalic vein with trace edema. No soft tissue collections seen. IMPRESSION: No evidence of DVT right upper extremity. Equivocal subtle wall thickening distal cephalic vein with trace adjacentedema. If this radiology report contains a blank impression section, it is anincomplete radiology report. Please contact the interpreting radiologistor applicable radiology division as soon as possible to obtain thecompleted interpretation. Workstation ID: [id number] us Melina Cohen MD [facility] US PROCEDURES Final Result * BMP - Basic Metabolic Panel (06/03/2025 8:33 AM EDT) NA 140 136 - 145 mmol/L 06/03/2025 9:03 AM EDT [facility] K 3.8 3.5 - 5.1 mmol/L 06/03/2025 9:03 AM EDT [facility] Cl 106 98 - 109 mmol/L 06/03/2025 9:03 AM EDT [facility] CO2 24 22 - 32 mmol/L 06/03/2025 9:03 AM EDT [facility] BUN 13 6 - 20 mg/dL 06/03/2025 9:03 AM EDT [facility] Creatinine 0.79 0.50 - 1.12 mg/dL 06/03/2025 9:03 AM EDT [facility] Glucose 89 60 - 99 mg/dL 06/03/2025 9:03 AM EDT [facility] Calcium 9.2 8.4 - 10.4 mg/dL 06/03/2025 9:03 AM EDT [facility] Anion Gap 14 >=0 06/03/2025 9:03 AM EDT [facility] eGFR 90 >=60 mL/min/1. 73m2 06/03/2025 9:03 AM EDT [facility] Comment:The estimated glomer ular filtration rate (eGFR) is calculated using a new formula developed by the NKF-ASN task force to eliminate race-based correction factors. The new formula uses serum/plasma creatinine, age, and gender to determine eGFR. A value below 60mls/min might indicate kidney disease and will be flagged. For additional information, see Tona et al, Am J Kidney Dis. 2021;79(2):268- 288, A Unifying Approach for GFR estimation: Recommendations of the NKF-ASN Task Force on Reassessing the Inclusion of Race in Diagnosing Kidney Disease . 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 Pap: 04/21/2025 1:09 AM [employer] Comment:11-18-23 Prev. Bx 04/21/2025 1:09 AM [employer] Comment:NONE GIVEN Source: 04/21/2025 1:09 AM [employer] [employer] Comment:Cervix, Endocervix Statement Of Adequacy: 04/21/2025 1:09 AM [employer] Comment: Satisfactory for evaluation. Endocervical/transformation zone component present. Interpretation/Res ult: 04/21/2025 1:09 AM [employer] [employer] Comment: Cytology Results: Negative for intraepithelial lesion or malignancy. Comment: 04/21/2025 1:09 AM [employer] [employer] Comment: This Pap test has been evaluated with computer assisted technology. [employer]: 025 1:09 AM [facility] [employer] Comment: GSG, CT(ASCP) CT screening location: [address] [address] Hpv Mrna E6/E7 Not Detected Not Detected 04/21/2025 1:[address] [facility] Comment: Methodology: Terminal Superintendent-Mediated Amplification This assay detects E6/E7 viral messenger RNA (mRNA) from 14 high-risk HPV types (16,18,31,33,35,39,45,51,52,56,58,59,66,68). Cervical sources are required for HPV testing. If a vaginal source from a patient who has had a total hysterectomy with removal of cervix was submitted, please contact the testing laboratory for alternative testing options. For additional information, please refer to http://education.3DSoC/faq/AAQ094i4 (This link if provided for information/ educational purposes only.) EXPLANATORY NOTE: The Pap is a screening test for cervical cancer. It is not a diagnostic test and is subject to false negative and false positive results. It is most reliable when a satisfactory sample, regularly obtained, is submitted with relevant clinical findings and history, and when the Pap result is evaluated along with historic and current clinical information. Brushing Cervix uteri structure / Unknown 04/19/2025 10:02 AM EDT us Toña Gerber MD [facility] ORDERABL ES Final Result [facility] [address] [facility] 3rd Floor, [place] [address], [employer] [facility] [address] [place] [address] * SOLOMON Bilateral Screening Digital Mammogram With Yoandy (04/01/2025 9:05 AM EDT) Anatomical Region Laterality Modality Breast Bilateral Mammography 04/01/2025 9:00 AM EDT Narrative 04/08/2025 5:40 AM EDT INDICATIONS FOR EXAMINATION: PATIENT HISTORY: Menarche at age 15. Patient has no children. Premenopausal. Patient tested for BRCA1 outcome was negative. Patient tested for BRCA2 outcome was negative. Hormonal Contraceptives, starting at age 19 for 28 years. Currently using Estrogen and Progesterone, beginning at age 49 for 5 years. Maternal aunt had breast cancer, age 39. Maternal aunt had breast cancer at or over age 50. Maternal aunt had breast cancer at or over age 50. Maternal aunt tested for BRCA1 outcome was negative. Maternal aunt tested for BRCA2 outcome was negative. Maternal aunt tested for BRCA1 outcome was negative. Maternal aunt tested for BRCA2 outcome was negative. Last mammogram was performed 1 year(s) and 4 month(s) ago. Reason for Exam: Screening (asymptomatic). Risk values: TC8 10 Year model risk: 4.3%. TC8 Lifetime model risk: 12.5%. TC8 risk calculated using 2.8% Volpara Volumetric Density SOLOMON Bilateral Screening Digital Mammogram with Yoandy: 04/01/2025 - Performed By (Primary): MD Claudette Rincon R.T. (R) (M) DIGITAL IMAGE VIEWS: 2D and 3D Bilateral CC views were taken. 2D and 3D Bilateral MLO views were taken. TISSUE DENSITY: The breasts are almost entirely fatty. FINDINGS: Analyzed By CAD. Comparison is made with prior examinations dating back to 2018. The mammogram appears benign. There is no significant change compared to the prior study. There is no evidence of malignancy. Computer aided detection ([employer]). Breast density quantitative analysis (Volpara). OVERALL ACR BI-RADS ASSESSMENT: BIRAD 1: Negative RECOMMENDATION: Screening Mammogram of both breasts in 1 year. Tiago Gunter MD Electronically signed and approved by: Tiago Gunter MD RAW Procedure Note Tiago Gunter MD - 04/08/2025 INDICATIONS FOR EXAMINATION: PATIENT HISTORY: Menarche at age 15. Patient has no children. Premenopausal. Patient tested for BRCA1 outcome was negative. Patient tested for BRCA2 outcome was negative. Hormonal Contraceptives, starting at age 19 for 28 years. Currently using Estrogen and Progesterone, beginning at age 49 for 5 years. Maternal aunt had breast cancer, age 39. Maternal aunt had breast cancer at or over age 50. Maternal aunt had breast cancer at or over age 50. Maternal aunt tested for BRCA1 outcome was negative. Maternal aunt tested for BRCA2 outcome was negative. Maternal aunt tested for BRCA1 outcome was negative. Maternal aunt tested for BRCA2 outcome was negative. Last mammogram was performed 1 year(s) and 4 month(s) ago. Reason for Exam: Screening (asymptomatic). Risk values: TC8 10 Year model risk: 4.3%. TC8 Lifetime model risk: 12.5%. TC8 risk calculated using 2.8% Volpara Volumetric Density [facility]OM[facility] Bilateral Screening Digital Mammogram with Yoandy: 04/01/2025 - Performed By (Primary): MD Claudette Rincon R.T. (R) (M) DIGITAL IMAGE VIEWS: 2D and 3D Bilateral CC views were taken. 2D and 3D Bilateral MLO views were taken. TISSUE DENSITY: The breasts are almost entirely fatty. FINDINGS: Analyzed By CAD. Comparison is made with prior examinations dating back to 2018. The mammogram appears benign. There is no significant change compared to the prior study. There is no evidence of malignancy. Computer aided detection ([employer]). Breast density quantitative analysis (Volpara). OVERALL ACR BI-RADS ASSESSMENT: BIRAD 1: Negative RECOMMENDATION: Screening Mammogram of both breasts in 1 year. Tiago Gunter MD Electronically signed and approved by: Tiago Gunter MD RAW us Toña Gerber MD IMG BI PROCEDURES Final Result * HEPATITIS C ANTIBODY, CONVERSION (10/29/2010 3:46 PM EST) Hepatitis C Antibody <0.02 <1.00 IV [facility] Comment: Negative Not infected with HCV, unless recent infection is suspected or other evidence exists to indicate HCV infection. 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 jpg Healthcare Agents on File Name Relationship Healthcare Agent Relationshi p Communication Jnaelle Scott Mother Health Care Agent Greer Lugo Friend [facility] Health Care Ag ent Care Teams Director Of Knowledge Management Relationship Specialty Start Date End Date Casie Cunningham NP [address] [place] [id number] PCP - General Family Medicine 10/22/24
--- OUTSIDE RECORDS SUMMARY | 2025-08-05 13:12 | XMS_ITS | Encounter Summary ---
Author Organization [facility] Address [address] [place] [address] Care Team Providers Care Car Parker Name Role Phone Brennan Gaines MD Primary Care Provider Encounter Details Date Type Department Care Team (Late st Contact Info) Description 04/17/2012 Orders Only [facility] Neurology [address] [facility] [address] [place] [address] José Miguel Lechuga MD [address] [place] [address] Social History Tobacco Use Types Packs/Day Years Used Date Smoking Tobacco: Never Smokeless Tobacco: Never Alcohol Use Standard Drinks/Week Comments Not Asked 0 (1 standard drink = 0.6 oz pur e alcohol) Comments No Sex and Gender Information Value Date Recorded Sex Assigned at Female 08/23/2023 3:30 PM EDT Legal Sex Female 6:44 AM EDT Gender Identity Female 08/23/2023 3:30 PM EDT Sexual Orientation Straight 08/23/2023 3: 30 PM EDT documented as of this encounter Plan of Treatment Not on file documented as of this encounter Procedures * Due to [place] state law, this organization might not be sharing negative HIV tests. Procedure Name Priority Date/Time Associated Diagnosis Comments THYROID STIMULATING HORMONE (TSH) WITH FREE T4 REFLEX, SERUM Routine 04/17/2012 2:17 PM EDT Fatigue documented in this encounter Results * Due to [place] state law, this organization might not be sharing negative HIV tests. * THYROID STIMULATING HORMONE (TSH) WITH FREE T4 REFLEX, SERUM (04/17/2012 2:17 PM EDT) TSH 1.26 mIU/L [facility] Comment: {TSH W/REFLEX TO FT4 {[id number]) Reference Range > or = 20 Years 0.40-4.50 Ranges First trimester 0.26-2.66 Second trimester 0.55-2.73 Third trimester 0.43-2.91 04/17/2012 2:17 PM EDT 04/17/2012 10:13 PM EDT Narrative Resulting Agency Comment [id number] José Miguel Lechuga MD LABORATORY Final Result Performing Organization Address City/State/[facility] Co de Phone Number [facility] [address] [place] [address] documented in this encounter Visit Diagnoses Diagnosis Fatigue Other malaise and fatigue documented in this encounter Care Teams Car Parker Relationship Specialty Start Date End Date Brennan Gaines MD PCP - General 11/10/08 documented as of this encounter
--- OUTSIDE RECORDS SUMMARY | 2025-08-05 13:12 | XMS_ITS | Encounter Summary ---
Author Organization [facility] Address [address] [place] [address] Care Team Providers Care Credit Card Associate Name Role Phone Casie Cunningham SOFTWARE PROGRAM MANAGER Primary Care P rovider Reason for Visit * Reason Onset Date Comments Med Refill 08/01/2025 Encounter Details Date Type Department Care Team (Late st Contact Info) Description 08/01/2025 Refill [facility] Primary Care [address] [place] [address] Casie Cunningham, ZENA [address] [place] [address] Social History Tobacco Use Types Packs/Day Years Used Date Smoking Tobacco: Never Smokeless Tobacco: Never Comments:: Alcohol Use Standard Drinks/Week Comments Not Currently 0 (1 standard drink = 0.6 oz pur e alcohol) less than once monthly [facility] Utilities Answer Date Recorded In the past 12 months has [employer] electric, gas, oil, or water company threatened [...] Start Date Job End Date works in [email or web address] Not on file Not on file Not on file documented as of this encounter Miscellaneous Notes * Telephone Encounter - Nereida Chi MA - 08/01/2025 2:10 PM EDT Recent Visits Date Type Provider Dept 07/06/25 Follow-Up [facility] 06/09/25 Office Visit CARLITA Barnett Primary [facility] 04/08/25 Follow-Up [facility] 02/23/25 Telehealth [facility] 01/26/25 Follow-Up [facility] 01/07/25 Office Visit MD Janki Gonzales Primary [facility] 12/31/24 Office Visit [facility] 11/26/24 Follow-Up [facility] 10/29/24 Office Visit [facility] Showing recent visits within past 540 days with a meds authorizing provider and meeting all other requirements Future Appointments Date Type Provider Dept 08/19/25 Appointment Casie Cunningham NP [facility] Showing future appointments within next 150 days with a meds authorizing provider and meeting all other requirements Last filled 07/06 #15 for 15 days documented in this encounter Plan of Treatment Upcoming Encounters Date Type Department Care Team (Late st Contact Info) Description 08/15/2025 8:00 AM EDT Follow-Up [facility] [address] [place] [address] Manager Engine: Bon Black MD [address] [place] [address] 08/18/2025 9:45 AM EDT Follow-Up [facility] Neurology [address] [place] [address] Nacho Mcqueen MD [address] [place] [address] 08/19/2025 4:15 PM EDT Follow-Up [facility] Primary Care [address] [place] [address] Casie Cunningham NP [address] [place] [address] 04/17/2026 8:00 AM EDT Office Visit [facility] Endocrinology [address] [address] Manager Engine: Katy Cordon MD [address] [place] [address] 05/17/2026 8:00 AM EDT Ancillary Procedure [facility] 67 [facility] [address] [place] [address] 05/17/2026 8:30 AM EDT Office Visit [facility] [address] [address] Leah Kothari NP [address] [place] [address] documented as of this encounter Visit Diagnoses Not on filedocumented in this encounter Care Teams Credit Card Associate Relationship Specialty Start Date End Date Casie Cunningham NP [address] [place] [address] PCP - General Family Medicine 10/22/24 documented as of this encounter
--- OUTSIDE RECORDS SUMMARY | 2025-08-05 13:12 | XMS_ITS | Encounter Summary ---
Author Organization [facility] Address [address] [place] [address] Care Team Providers Care Nurse Recruiter Name Role Phone Casie Cunningham BUTT WELDER Primary Care P [facility] Encounter Details Date Type Department Care Team (Late st Contact Info) Description 07/04/2025 Results Follow-Up [facility] Primary Care [address] [place] [address] Casie Cunningham, ZENA [address] [place] [address] Social History Tobacco Use Types Packs/Day Years Used Date Smoking Tobacco: Never Smokeless Tobacco: Never Comments:: Alcohol Use Standard Drinks/Week Comments Not Currently 0 (1 standard drink = 0.6 oz pur e alcohol) less than once monthly [facility] Utilities Answer Date Recorded In the past [...] Start Date Job End Date works in [employer] Not on file Not on file Not on file documented as of this encounter Plan of Treatment Upcoming Encounters Date Type Department Care Team (Late st Contact Info) Description 08/15/2025 8:00 AM EDT Follow-Up [facility] [address] [place] [address] Brine Purifier: Bon Black MD [address] [place] [address] 08/18/2025 9:45 AM EDT Follow-Up [facility] Neurology [address] [place] [address] Nacho Mcqueen MD [address] [place] [address] 08/19/2025 4:15 PM EDT Follow-Up [facility] Primary Care [address] [place] [address] Casie Cunningham NP [address] [place] [address] 04/17/2026 8:00 AM EDT Office Visit [facility] Endocrinology [address] [place] [address] Brine Purifier: Katy Cordon MD [address] [place] [address] 05/17/2026 8:00 AM EDT Ancillary Procedure [facility] [address] [place] [address] 05/17/2026 8:30 AM EDT Office Visit [facility] [employer] [address] [place] [address] Leah Kothari NP [address] [place] [address] documented as of this encounter Visit Diagnoses Not on filedocumented in this encounter Care Teams Nurse Recruiter Relationship Specialty Start Date End Date Casie Cunningham NP [address] [place] [address] PCP - General Family Medicine 10/22/24 documented as of this encounter
--- OUTSIDE RECORDS SUMMARY | 2025-08-05 13:12 | XMS_ITS | Encounter Summary ---
Author Organization [facility] Address [address] [place] [address] Care Team Providers Care Keg Header Name Role Phone Casie Cunningham ASSESSMENT RN Primary Care P lexx Encounter Details Date Type Department Care Team (Late st Contact Info) Description 09/02/2023 Orders Only [facility] [address] [address] Toña Gerber MD [address] [place] [address] Social History Tobacco Use Types Packs/Day Years Used Date Smoking Tobacco: Never Smokeless Tobacco: Never Comments:: Alcohol Use Standard Drinks/Week Comments No 0 (1 standard drink = 0.6 oz pur e alcohol) Comments No Sex and Gender Information Value Date Recorded Sex Assigned at Female 11/14/2020 11:50 AM EST Legal Sex Female 1:19 AM EDT Gender Identity Female 11/14/2020 11:50 AM EST Sexual Orientation Straight 11/14/2020 11 :50 AM EST Occupation Industry Job Start Date Job End Date works in [employer] Not on file Not on file Not on file documented as of this encounter Plan of Treatment Upcoming Encounters Date Type Department Care Team (Late st Contact Info) Description 08/15/2025 8:00 AM EDT Follow-Up [facility] [address] [place] [address] Manufacturing Advisor: Bon Black MD [address] [place] [address] 08/18/2025 9:45 AM EDT Follow-Up [facility] Neurology [address] [place] [address] Nacho Mcqueen MD [address] [place] [address] 08/19/2025 4:15 PM EDT Follow-Up [facility] Primary Care [address] [place] [phone] Casie Cunningham NP [address] [place] [address] 04/17/2026 8:00 AM EDT Office Visit [facility] Endocrinology [address] [place] [address] Manufacturing Advisor: Katy Cordon MD [address] [place] [address] 05/17/2026 8:00 AM EDT Ancillary Procedure [facility] [employer] [address] [place] [address] 05/17/2026 8:30 AM EDT Office Visit [facility] [employer] [address] [place] [address] Leah Kothari NP [address] [place] [address] documented as of this encounter Visit Diagnoses Not on filedocumented in this encounter Additional Health Concerns Infection Onset Date Last Indicated Resolved Time R/O Respiratory Virus Infection 01/07/2025 01/07/2025 12:34 PM EST R/O Influenza 01/07/2025 01/07/2025 01/07/2025 12: 34 PM EST COVID-19 - Suspected infection 01/07/2025 01/07/2025 01/07/2025 12:34 PM EST documented as of this encounter Care Teams Keg Header Relationship Specialty Start Date End Date Casie Cunningham NP [address] [place] [address] PCP - General Family Medicine 10/22/24 documented as of this encounter
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
--- OUTSIDE RECORDS SUMMARY | 2025-08-05 13:12 | XMS_ITS | Encounter Summary ---
Author Organization [facility] Address [address] [place] [address] Care Team Providers Care House Cleaner Name Role Phone Casie Cunningham RN [facility] Primary Care P lexx Encounter Details Date Type Department Care Team (Late st Contact Info) Description 06/09/2025 Results Follow-Up [facility] Primary Care [address] [place] [address] Marlys Chavez, PA [address] [place] [address] Social History Tobacco Use Types Packs/Day Years Used Date Smoking Tobacco: Never Smokeless Tobacco: Never Comments:: Alcohol Use Standard Drinks/Week Comments Not Currently 0 (1 standard drink = 0.6 oz pur e alcohol) less than once monthly [facility] Utilities Answer Date Recorded In the past [...] Start Date Job End Date works in [employer] Not on file Not on file Not on file documented as of this encounter Miscellaneous Notes * Result Encounter Note - CARLITA Barnett - 06/09/2025 10:42 PM EDT Can you add iron levels to this patient ; order is in documented in this encounter Plan of Treatment Upcoming Encounters Date Type Department Care Team (Late st Contact Info) Description 08/15/2025 8:00 AM EDT Follow-Up [facility] [address] [place] [address] Supervisor Packing Room: Bon Black MD [address] [place] [address] 08/18/2025 9:45 AM EDT Follow-Up [facility] Neurology [address] [place] [address] Nacho Mcqueen MD [address] [place] [address] 08/19/2025 4:15 PM EDT Follow-Up [facility] Primary Care [address] [place] [address] Casie Cunningham NP [address] [place] [address] 04/17/2026 8:00 AM EDT Office Visit [facility] Endocrinology [address] [place] [address] Supervisor Packing Room: Katy Cordon MD [address] [place] [address] 05/17/2026 8:00 AM EDT Ancillary Procedure [facility] [address] [place] [address] 05/17/2026 8:30 AM EDT Office Visit [facility] [address] [place] [address] Leah Kothari NP [address] [place] [address] documented as of this encounter Visit Diagnoses Diagnosis Anemia, unspecified type- Primary documented in this encounter Care Teams House Cleaner Relationship Specialty Start Date End Date Casie Cunningham NP [address] [place] [address] PCP - General Family Medicine 10/22/24 documented as of this encounter
--- OUTSIDE RECORDS SUMMARY | 2025-08-05 13:12 | XMS_ITS | Encounter Summary ---
Author Organization [facility] Address [address] [place] [address] Care Team Providers Care Well Drill Operator Rotary Drill Name Role Phone Casie Cunningham CHIEF OPERATOR Primary Care P lexx Encounter Details Date Type Department Care Team (Late st Contact Info) Description 01/21/2024 Manifest Digitalhart Message [facility] Revenue Cycle Management [address] [place] [address] Mychart, Generic Provider [address] [place] [address] your billing inquiry Social History Tobacco Use Types Packs/Day Years [...] Start Date Job End Date works in [employer] Not on file Not on file Not on file documented as of this encounter Plan of Treatment Upcoming Encounters Date Type Department Care Team (Late st Contact Info) Description 08/15/2025 8:00 AM EDT Follow-Up [facility] [address] [place] [address] [employer] Sales Representative: Bon Black MD [address] [place] [address] 08/18/2025 9:45 AM EDT Follow-Up [facility] Neurology [address] [place] [address] Nacho Mcqueen MD [address] [place] [address] 08/19/2025 4:15 PM EDT Follow-Up [facility] Primary Care [address] [place] [phone] Casie Cunningham NP [address] [place] [address] 04/17/2026 8:00 AM EDT Office Visit [facility] Endocrinology [address] [place] [address] [employer] Sales Representative: Katy Cordon MD [address] [place] [address] 05/17/2026 8:00 AM EDT Ancillary Procedure [facility] [employer] [address] [place] [address] 05/17/2026 8:30 AM EDT Office Visit [facility] [employer] [address] [place] [address] Leah Kothari NP [address] [place] [address] documented as of this encounter Visit Diagnoses Not on filedocumented in this encounter Additional Health Concerns Infection Onset Date Last Indicated Resolved Time R/O Respiratory Virus Infection 01/07/2025 01/07/2025 12:34 PM EST R/O Influenza 01/07/2025 01/07/2025 01/07/2025 12: 34 PM EST COVID-19 - Suspected infection 01/07/2025 01/07/2025 01/07/2025 12:34 PM EST documented as of this encounter Care Teams Well Drill Operator Rotary Drill Relationship Specialty Start Date End Date Casie Cunningham NP [address] [place] [address] PCP - General Family Medicine 10/22/24 documented as of this encounter
--- OUTSIDE RECORDS SUMMARY | 2025-08-05 13:12 | XMS_ITS | Encounter Summary ---
Author Organization [facility] Address [address] [place] [address] Care Team Providers Care Meeting Specialist Name Role Phone Casie Cunningham POLICY WRITER TYPIST Primary Care P lexx Encounter Details Date Type Department Care Team (Late st Contact Info) Description 07/19/2025 myChart Message [facility] Neurology [address] [place] [address] [phone] Nacho Mcqueen MD [address] [place] [address] [phone] STD Social History Tobacco Use Types Packs/Day Years Used Date Smoking Tobacco: Never Smokeless Tobacco: Never Comments:: Alcohol Use Standard Drinks/Week Comments Not Currently 0 (1 standard drink = 0.6 oz pur e alcohol) less than once monthly [facility] Utilities Answer Date Recorded In the [...] Start Date Job End Date works in [employer] Not on file Not on file Not on file documented as of this encounter Plan of Treatment Upcoming Encounters Date Type Department Care Team (Late st Contact Info) Description 08/15/2025 8:00 AM EDT Follow-Up [facility] [address] [place] [address] Head Porter: Omi Vigil, Bon Cuevas MD [address] [place] [address] 08/18/2025 9:45 AM EDT Follow-Up [facility] Neurology [address] [place] [address] Nacho Mcqueen MD [address] [place] [address] 08/19/2025 4:15 PM EDT Follow-Up [facility] Primary Care [address] [place] [address] Casie Cunningham NP [address] [place] [address] 04/17/2026 8:00 AM EDT Office Visit [facility] Endocrinology [address] [place] [address] Head Porter: Katy Cordon MD [address] [place] [address] 05/17/2026 8:00 AM EDT Ancillary Procedure [facility] [employer] [address] [place] [address] 05/17/2026 8:30 AM EDT Office Visit [facility] [employer] [address] [place] [address] Leah Kothari NP [address] [place] [address] documented as of this encounter Visit Diagnoses Not on filedocumented in this encounter Care Teams Meeting Specialist Relationship Specialty Start Date End Date Casie Cunningham NP [address] [place] [address] PCP - General Family Medicine 10/22/24 documented as of this encounter
--- OUTSIDE RECORDS SUMMARY | 2025-08-05 13:12 | XMS_ITS | Encounter Summary ---
Author Organization [facility] Address [address] [place] [address] Care Team Providers Care Clinical Specialist Vascular Name Role Phone Casie Cunningham SURFACE LOGGING SYSTEMS LOGGER Primary Care P lexx Encounter Details Date Type Department Care Team (Late st Contact Info) Description 08/23/2023 myChart Message [facility] Department [address] [place] [address] Mychart, Generic Provider [address] [place], [place] [phone] Questionnaire Submission Social History Tobacco Use Types Packs/Day Years [...] Start Date Job End Date works in [employer] Not on file Not on file Not on file documented as of this encounter Plan of Treatment Upcoming Encounters Date Type Department Care Team (Late st Contact Info) Description 08/15/2025 8:00 AM EDT Follow-Up [facility] [address] [place] [address] Semiconductor Wafers Saw Operator: Bon Black MD [address] [place] [address] 08/18/2025 9:45 AM EDT Follow-Up [facility] Neurology [address] [place] [address] Nacho Mcqueen MD [address] [place] [address] 08/19/2025 4:15 PM EDT Follow-Up [facility] Primary Care [address] [place] [address] Casie Cunningham NP [address] [place] [address] 04/17/2026 8:00 AM EDT Office Visit [facility] Endocrinology [address] [place] [address] Semiconductor Wafers Saw Operator: Katy Cordon MD [address] [place] [address] 05/17/2026 8:00 AM EDT Ancillary Procedure [employer] [address] [place] [address] 05/17/2026 8:30 AM EDT Office Visit [facility] [employer] [address] [place] [address] Leah Kothari NP [address] [place] [address] documented as of this encounter Visit Diagnoses Not on filedocumented in this encounter Additional Health Concerns Infection Onset Date Last Indicated Resolved Time R/O Respiratory Virus Infection 01/07/2025 01/07/2025 12:34 PM EST R/O Influenza 01/07/2025 01/07/2025 01/07/2025 12: 34 PM EST COVID-19 - Suspected infection 01/07/2025 01/07/2025 01/07/2025 12:34 PM EST documented as of this encounter Care Teams Clinical Specialist Vascular Relationship Specialty Start Date End Date Casie Cunningham NP [address] [place] [address] PCP - General Family Medicine 10/22/24 documented as of this encounter
--- OUTSIDE RECORDS SUMMARY | 2025-08-05 13:12 | XMS_ITS | Encounter Summary ---
Author Organization [facility] Address [address] [place] [address] Care Team Providers Care Legislative Correspondent Name Role Phone Casie Cunningham CISCO ADMINISTRATOR Primary Care P lexx Encounter Details Date Type Department Care Team (Late st Contact Info) Description 06/16/2025 Results Follow-Up [facility] Primary Care [address] [place] [address] Marlys Chavez, PA [address] [place] [address] Social History Tobacco Use Types Packs/Day Years Used Date Smoking Tobacco: Never Smokeless Tobacco: Never Comments:: Alcohol Use Standard Drinks/Week Comments Not Currently 0 (1 standard drink = 0.6 oz pur e alcohol) less than once monthly [facility] Utilities Answer Date Recorded In the [...] Start Date Job End Date works in [employer] Not on file Not on file Not on file documented as of this encounter Plan of Treatment Upcoming Encounters Date Type Department Care Team (Late st Contact Info) Description 08/15/2025 8:00 AM EDT Follow-Up [facility] [address] [place] [address] Heel Compressor: Bon Black MD [address] [place] [address] 08/18/2025 9:45 AM EDT Follow-Up [facility] Neurology [address] [place] [address] Nacho Mcqueen MD [address] [place] [address] 08/19/2025 4:15 PM EDT Follow-Up [facility] Primary Care [address] [place] [address] Casie Cunningham NP [address] [place] [address] 04/17/2026 8:00 AM EDT Office Visit [facility] Endocrinology [address] [place] [address] Heel Compressor: Katy Cordon MD [address] [place] [address] 05/17/2026 8:00 AM EDT Ancillary Procedure [facility] [address] [place] [address] 05/17/2026 8:30 AM EDT Office Visit [facility] [address] [place] [address] Leah Kothari NP [address] [place] [address] documented as of this encounter Results * Due to [place] state law, this organization might not be sharing negative HIV tests. * (ABNORMAL) CBC Auto Differential (07/04/2025 7:18 AM EDT) WBC 6.6 4.8 - 10.8 10*3/uL 07/04/2025 7:23 AM EDT [facility] RBC 4.31 4.20 - 5.40 10*6/uL 07/04/2025 7:23 AM EDT [facility] Hemoglobin 11.9 11.7 - 15.5 g/dL 07/04/2025 7:23 AM EDT [facility] Hematocrit 35.4(L) 35.7 - 45.8 % 07/04/2025 7:23 AM EDT [facility] MCV 82.1 81.0 - 99.0 fL 07/04/2025 7:23 AM EDT [facility] MCH 27.6 26.0 - 34.0 pg 07/04/2025 7:23 AM EDT [facility] MCHC 33.6 31.0 - 36.0 g/dL 07/04/2025 7:23 AM EDT [facility] RDW 13.7 12.0 - 15.0 % 07/04/2025 7:23 AM EDT [facility] RDW Standard Deviation 41.0 36.4 - 46.3 fL 07/04/2025 7:23 AM EDT [facility] Platelets 286 140 - 440 10*3/uL 07/04/2025 7:23 AM EDT [facility] MPV 8.8(L) 9.4 - 12.3 fL 07/04/2025 7:23 AM EDT [facility] Neutrophil % 49.3(L) 50.0 - 75.0 % 07/04/2025 7:23 AM EDT [facility] Immature Grans % 0.3 0.0 - 0.9 % 07/04/2025 7:23 AM EDT [facility] Lymphocyte % 39.2 20.0 - 44.0 % 07/04/2025 7:23 AM EDT [facility] Monocyte % 7.5 0.0 - 14.0 % 07/04/2025 7:23 AM EDT [facility] Eosinophil % 2.9 0.0 - 5.0 % 07/04/2025 7:23 AM EDT [facility] Basophil % 0.8 0.0 - 2.0 % 07/04/2025 7:23 AM EDT [facility] Neutrophil # 3.27 1.80 - 7.70 10*3/uL 07/04/2025 7:23 AM EDT [facility] Immature Grans # <0.03 0.00 - 0.03 10*3/uL 07/04/2025 7:23 AM EDT [facility] Lymphocyte # 2.60 1.00 - 4.75 10*3/uL 07/04/2025 7:23 AM EDT [facility] Monocyte # 0.50 0.00 - 0.60 10*3/uL 07/04/2025 7:23 AM EDT [facility] Eosinophil # 0.20 0.00 - 0.80 10*3/uL 07/04/2025 7:23 AM EDT [facility] Basophil # 0.10 0.00 - 0.20 10*3/uL 07/04/2025 7:23 AM EDT [facility] nRBC % 0.0 0 - 0 /100 WBCs 07/04/2025 7:23 AM EDT [facility] nRBC # <0.01 0.00 - 0.13 10*3/uL 07/04/2025 7:23 AM EDT [facility] Blood Structure of peripheral vein / Unknown Venipuncture / Unknown 07/04/2025 7:18 AM EDT 07/04/2025 7:18 AM EDT us [facility] BLOOD ORDERABLES Fin al Result Performing Organization Address City/State/[facility] Co de Phone Number [facility] [address] [place] [address] [address] [place] [address], documented in this encounter Visit Diagnoses Diagnosis Anemia, unspecified type- Primary documented in this encounter Care Teams Legislative Correspondent Relationship Specialty Start Date End Date Casie Cunningham NP [address] [place] [address] PCP - General Family Medicine 10/22/24 documented as of this encounter
--- OUTSIDE RECORDS SUMMARY | 2025-08-05 13:12 | XMS_ITS | Clinical Summary ---
Author Organization [facility] Address [address] [place] [address] Care Team Providers Care Mill Platform Supervisor Name Role Phone Brennan Gaines MD Primary Care Provider [phone] Allergies Active Allergy Reactions Criticality Noted Date Comments Morphine Other Medium 05/11/2012 halucinate Medications * This document contains information received from the source organization and may not represent a complete record from that organization. DULoxetine HCl (CYMBALTA) [address] Particles 2 TABS AT BEDTIME Active Nortriptyline HCl 75 MG Cap 1 CAPSULE AT BEDTIME Active PredniSONE 10 MG Tab 1 TABLET DAILY FOR 6 DAYS NEEDED Active Zolpidem Tartrate (AMBIEN) 10 MG Tab 1 TABLET AT BEDTIME NEEDED Active ALPRAZolam 1 MG Tab 1 TABLET 3 TIMES DAILY NEEDED Active Levothyroxine Sodium 50 MCG Cap 1 CAPSULE DAILY Active Pravastatin Sodium 10 MG Tab 1 TABLET AT BEDTIME Active Esomeprazole Magnesium (NEXIUM) 40 MG CAPSULE DELAYED RELEASE 1 CAPSULE DAILY Active Propranolol HCl 80 MG Tab 1 TABLET 2 TIMES DAILY Active Zonisamide (ZONEGRAN) 25 MG Cap 1 CAPSULE twice DAILY 60 Cap 5 04/17/2012 Active Zonisamide 50 MG Cap 1 CAPSULE twice DAILY 60 Cap 5 05/11/2012 Active Propranolol HCl 40 MG Tab 1 TABLET 1TIME DAILY Active ACETAMINOPHEN-C AFF-BUTALBITAL (FIORICET) 50-325-40 MG Tab 1 OR 2 TABLETS EVERY 4 HOURS NEEDED 30 Tab 0 07/24/2012 Active Active Problems No known active problems Immunizations Immunization Administration Dates Next Due Td (adult), adsorbed 01/19/1997 Social History Tobacco Use Types Packs/Day Years [...] Orientation Straight 08/23/2023 3: 30 PM EDT Last Filed Vital Signs Vital Sign Reading Time Taken Comments Blood Pressure 110/64 05/11/2012 3:29 PM EDT Pulse 76 05/11/2012 3:29 PM EDT Temperature 36.9 C (98.4 F) 04/07/2009 6:05 PM EDT Respiratory Rate 16 04/07/2009 6:05 PM EDT Oxygen Saturation - - Inhaled Oxygen Concentration - - Weight 92.1 kg (203 lb) 03/05/2012 10:29 AM EDT Height - - Body Mass Index - - Plan of Treatment Health Maintenance Due Date Last Done Comments Hepatitis C Screening 1971 Pap Smear 1987 Hep B (1 of 3 - 19+ 3-dose series) 1990 DTaP/Tdap/Td (1 - Tdap) 01/20/1997 01/19/1997 Mammogram/Breast Imaging 2011 Pneumococcal 50+ years (1 of 1 - PCV) 2021 Zoster (Shingrix) (1 of 2) 2021 COVID-19 Vaccine ( - 2023-2 5 season) 2025 Influenza (#1) 2025 HPV Vaccine (No Doses Required) Completed Hep A Aged Out No longer eligi ble based on patient's age to complete this topic Hib Aged Out No longer eligi ble based on patient's age to complete this topic Meningococcal ACWY Aged Out No longer eligible based on patient's age to complete this topic Care Teams Mill Platform Supervisor Relationship Specialty Start Date End Date Brennan Gaines MD [facility] - General 11/10/08
--- OUTSIDE RECORDS SUMMARY | 2025-08-05 13:12 | XMS_ITS | Encounter Summary ---
Author Organization [facility] Address [address] [place] [address] Care Team Providers Care Field Crop Farming Supervisor Name Role Phone Casie Cunningham CADDYMASTER Primary Care P lexx Encounter Details Date Type Department Care Team (Late st Contact Info) Description 07/04/2025 Results Follow-Up [facility] Primary Care [address] [place] [address] Marlys Chavez, PA [address] [place] [address] Social History Tobacco Use Types Packs/Day Years Used Date Smoking Tobacco: Never Smokeless Tobacco: Never Comments:: Alcohol Use Standard Drinks/Week Comments Not Currently 0 (1 standard drink = 0.6 oz pur e alcohol) less than once monthly [facility] Utilities Answer Date Recorded In the [...] Start Date Job End Date works in [employer] Not on file Not on file Not on file documented as of this encounter Plan of Treatment Upcoming Encounters Date Type Department Care Team (Late st Contact Info) Description 08/15/2025 8:00 AM EDT Follow-Up [facility] [address] [place] [address] Government Affairs Fellow: Bon Black MD [address] [place] [address] 08/18/2025 9:45 AM EDT Follow-Up [facility] Neurology [address] [place] [address] Nacho Mcqueen MD [address] [place] [address] 08/19/2025 4:15 PM EDT Follow-Up [facility] Primary Care [address] [place] [address] Casie Cunningham NP [address] [place] [address] 04/17/2026 8:00 AM EDT Office Visit [facility] Endocrinology [address] [place] [address] Government Affairs Fellow: Katy Cordon MD [address] [place] [address] 05/17/2026 8:00 AM EDT Ancillary Procedure [facility] [address] [place] [address] 05/17/2026 8:30 AM EDT Office Visit [facility] [address] [place] [address] Leah Kothari NP [address] [place] [address] documented as of this encounter Visit Diagnoses Not on filedocumented in this encounter Care Teams Field Crop Farming Supervisor Relationship Specialty Start Date End Date Casie Cunningham NP [address] [place] [address] PCP - General Family Medicine 10/22/24 documented as of this encounter
--- OUTSIDE RECORDS SUMMARY | 2025-08-05 13:12 | XMS_ITS | Encounter Summary ---
Author Organization [facility] Address [address] [place] [address] Care Team Providers Care Sand Mixer Operator Name Role Phone Casie Cunningham CUSHION FORMER Primary Care P lexx Encounter Details Date Type Department Care Team (Late st Contact Info) Description 03/22/2025 Stumpediat Message [facility] Financial Clearance Department [address] [place] [address] Mychart, Generic Provider [facility] [place] [place] [address] Pharamcy Authoirzation Status Social History Tobacco Use Types Packs/Day Years Used Date Smoking Tobacco: Never Smokeless Tobacco: Never Comments:: Alcohol Use Standard Drinks/Week Comments Yes 0 (1 standard drink = 0.6 oz pur e alcohol) less than once monthly [facility] Utilities Answer Date Recorded In the past 12 months has e electric, gas, oil, or water company threatened to shut off services in your home? No 11/19/2024 Hunger Vital Sign Answer Date Recorded Within the past 12 months, y ou worried that your food would run out before you got the money to buy more. Often true 11/19/19 25 Within the past 12 months, t he food you bought just didn't last and you didn't have money to get more. Often true 11/19/2024 Transportation Answer Date Recorded In the past 12 months, has l ack of reliable transportation kept you from medical appointments, meetings, work or from getting things needed for daily living? No 11/19/2024 Housing Answer Date Recorded Housing Risk Low [...] Start Date Job End Date works in [employer] Not on file Not on file Not on file documented as of this encounter Plan of Treatment Upcoming Encounters Date Type Department Care Team (Late st Contact Info) Description 08/15/2025 8:00 AM EDT Follow-Up [facility] [address] [place] [address] Security Control Center Operator: Bon Black MD [address] [place] [address] 08/18/2025 9:45 AM EDT Follow-Up [facility] Neurology [address] [place] [address] Nacho Mcqueen MD [address] [place] [address] 08/19/2025 4:15 PM EDT Follow-Up [facility] Primary Care [address] [place] [address] Casie Cunningham NP [address] [place] [address] 04/17/2026 8:00 AM EDT Office Visit [facility] Endocrinology [address] [place] [address] Security Control Center Operator: Katy Cordon MD [address] [place] [address] 05/17/2026 8:00 AM EDT [facility] [address] [address] 05/17/2026 8:30 AM EDT [facility] [address] [address] Leah Kothari NP [address] [place] [address] documented as of this encounter Visit Diagnoses Not on filedocumented in this encounter Care Teams Sand Mixer Operator Relationship Specialty Start Date End Date Casie Cunningham NP [address] [place] [address] PCP - General Family Medicine 10/22/24 documented as of this encounter
--- OUTSIDE RECORDS SUMMARY | 2025-08-05 13:12 | XMS_ITS | Encounter Summary ---
Author Organization [facility] Address [address] [place] [address] Care Team Providers Care Seismic Prospecting Observer Helper Name Role Phone Casie Cunningham [employer]IAN Primary Care P lexx Encounter Details Date Type Department Care Team (Late st Contact Info) Description 07/20/2025 myChart Message [facility] [address] [place] [address] Test And Turn Up Technician: Janet Waterman NP [address] [place] [address] Bronchitis Social History Tobacco Use Types Packs/Day Years Used Date Smoking Tobacco: Never Smokeless Tobacco: Never Comments:: Alcohol Use Standard Drinks/Week Comments Not Currently 0 (1 standard drink = 0.6 oz pur e alcohol) less than once monthly [facility] Utilities Answer Date Recorded In the past 12 months has [employer] electric, gas, oil, or water company threatened [...] Start Date Job End Date works in [employer] Not on file Not on file Not on file documented as of this encounter Plan of Treatment Upcoming Encounters Date Type Department Care Team (Late st Contact Info) Description 08/15/2025 8:00 AM EDT Follow-Up [facility] [address] [place] [address] Test And Turn Up Technician: Bon Black MD [address] [place] [address] 08/18/2025 9:45 AM EDT Follow-Up [facility] Neurology [address] [place] [address] Nacho Mcqueen MD [address] [place] [address] 08/19/2025 4:15 PM EDT Follow-Up [facility] Primary Care [address] [place] [phone] Casie Cunningham NP [address] [place] [address] 04/17/2026 8:00 AM EDT Office Visit [facility] Endocrinology [address] [place] [address] Test And Turn Up Technician: Katy Cordon MD [address] [place] [address] 05/17/2026 8:00 AM EDT Ancillary Procedure [employer] [address] [place] [address] 05/17/2026 8:30 AM EDT Office Visit [employer] [address] [place] [address] Leah Kothari NP [address] [place] [address] documented as of this encounter Visit Diagnoses Not on filedocumented in this encounter Care Teams Seismic Prospecting Observer Helper Relationship Specialty Start Date End Date Casie Cunningham NP [address] [place] [address] PCP - General Family Medicine 10/22/24 documented as of this encounter
--- OUTSIDE RECORDS SUMMARY | 2025-08-05 13:12 | XMS_ITS | Encounter Summary ---
Author Organization [facility] Address [address] [place] [address] Care Team Providers Care Mental Health Director Name Role Phone Casie Cunningham AGING ROOM OPERATOR Primary Care P millerheber Encounter Details Date Type Department Care Team (Late st Contact Info) Description 07/27/2025 myChart Message [facility] Neurology [address] [place] [address] Trey Farah [place] [employer] Social History Tobacco Use Types Packs/Day Years Used Date Smoking Tobacco: Never Smokeless Tobacco: Never Comments:: Alcohol Use Standard Drinks/Week Comments Not Currently 0 (1 standard drink = 0.6 oz pur e alcohol) less than once monthly [facility] Utilities Answer Date Recorded In the past [...] Start Date Job End Date works in [employer] Not on file Not on file Not on file documented as of this encounter Plan of Treatment Upcoming Encounters Date Type Department Care Team (Late st Contact Info) Description 08/15/2025 8:00 AM EDT Follow-Up [facility] Allergy Center [address] [place] [address] Account Auditor: Omi Vigil, Bon Cuevas MD [address] [place] [address] 08/18/2025 9:45 AM EDT Follow-Up [facility] Neurology [address] [place] [address] Nacho Mcqueen MD [address] [place] [address] 08/19/2025 4:15 PM EDT Follow-Up [facility] Primary Care [address] [place] [phone] Casie Cunningham NP [address] [place] [address] 04/17/2026 8:00 AM EDT Office Visit [facility] Endocrinology [address] [place] [address] Account Auditor: Katy Cordon MD [address] [place] [address] 05/17/2026 8:00 AM EDT Ancillary Procedure [facility] [address] [address] 05/17/2026 8:30 AM EDT Office Visit [facility] [address] [address] Leah Kothari NP [address] [place] [address] documented as of this encounter Visit Diagnoses Not on filedocumented in this encounter Care Teams Mental Health Director Relationship Specialty Start Date End Date Casie Cunningham NP [address] [place] [address] PCP - General Family Medicine 10/22/24 documented as of this encounter
== END 2025-08-05 12:26 | disposition home or self-care (01) ==
LOC: HO.HNS 11:22
PROVIDERS: PCP Family Medicine; Visit Provider Physician Assistant
DX: M51.369 Other intervertebral disc degeneration, lumbar region without mention of lumbar back pain or lower extremity pain (principal); Z98.1 Arthrodesis status
CPT/HCPCS: 99213